=== PATIENT | male | born 1980 | race Caucasian/White ===

== ENCOUNTER 2020-02-22 11:49 | Emergency (ER) | payer SELFPAY ==
[~2020-02-22] VITALS: Ht 188 cm; Wt 84.1 kg
[2020-02-22 14:41] LABS: HEMATOCRIT 35.8 % (39.0-50.0); HEMOGLOBIN 12.1 g/dl (14.0-18.0); MEAN CELL VOLUME 93.5 fL CALC (80.0-100.0); MEAN CORPUSCULAR HGB 31.6 pG CALC (26.0-32.0); MEAN CORPUSCULAR HGB CONC 33.8 g/dL CAL (32.0-36.0); NEUT# 6.25 thou/uL (1.82-7.42); RED BLOOD COUNT 3.83 mill/uL (4.70-6.10)
[2020-02-22 14:48] LABS: ALBUMIN 3.6 g/dL (3.2-5.0); ALKALINE PHOSPHATASE 54 u/l (38-126); ANION GAP 8 (6-22 (CALC)); BILIRUBIN, TOTAL 0.3 mg/dL (0.0-1.4); BUN 24 mg/dL (9-20); BUN/CREATININE RATIO 27 (12-20 (CALC)); CARBON DIOXIDE 28 mmol/l (22-30); CHLORIDE 108 mmol/l (95-108); CREATININE 0.9 mg/dL (0.7-1.3); GFR > 60 ML/MIN (>=60 (CALC)); GFR FOR AFR.AMER. > 60 ML/MIN (>=60 (CALC)); LIPASE 214 u/l (23-300); POTASSIUM 3.3 mmol/l (3.5-5.1); SGOT/AST 30 u/l (17-59); SODIUM 140 mmol/l (137-146); TOTAL PROTEIN 6.1 g/dL (6.3-8.2)
[2020-02-22] MEDS ORDERED: TRINTELLIX10 MG (14:50)
[2020-02-22] MEDS ORDERED: ADDERALL10 MG PO (14:51)
[2020-02-22] MEDS ORDERED: DEPO-TESTOS200 MG/M1 IM (14:52)
[2020-02-22] MEDS ORDERED: STELARA130 MG/26 (14:52)
[2020-02-22] MEDS ORDERED: PREDNISONE20 MG PO (14:53)
[2020-02-22 14:56] LABS: IMMATURE GRANULOCYTES 8.4 % (0.0-5.0)
[2020-02-22 16:21] LABS: URINE BILIRUBIN - DIPSTICK NEGATIVE (NEGATIVE); URINE BLOOD DIPSTICK NEGATIVE (NEGATIVE); URINE COLOR YELLOW; URINE GLUCOSE - DIPSTICK NEGATIVE (NEGATIVE); URINE KETONE NEGATIVE (NEGATIVE); URINE LEUK ESTERASE NEGATIVE (NEGATIVE); URINE NITRITE - DIPSTICK NEGATIVE (Negative); URINE PH 6.5 (4.5-8.0); URINE PROTEIN - DIPSTICK NEGATIVE (NEG-TRACE); URINE UROBILINOGEN - DIPSTICK 0.2 E.U./dL (0.2)
[2020-02-22 16:51] VITALS: BP 128/88
[2020-02-22] MEDS ORDERED: PHENERGAN25 MG/TAB PO (16:51)
[2020-02-22] MEDS ORDERED: PREDNISONE50 MG PO (16:51)
== END 2020-02-22 17:30 | disposition home or self-care (01) | DRG 392 ==
LOC: ED 11:49
PROVIDERS: Family Medicine
DX: R10.84 Generalized abdominal pain (principal); K50.90 Crohn's disease, unspecified, without complications; Z79.899 Other long term (current) drug therapy; F17.210 Nicotine dependence, cigarettes, uncomplicated

== ENCOUNTER 2020-05-12 23:00 | Emergency (ER) | payer SELFPAY ==
[~2020-05-12] VITALS: Ht 188 cm; Wt 90.0 kg
[~2020-05-12 23:00] MED LIST: ADDERALL10 MG PO; DEPO-TESTOS200 MG/M1 IM; PHENERGAN25 MG/TAB PO; PREDNISONE20 MG PO; PREDNISONE50 MG PO; STELARA130 MG/26; TRINTELLIX10 MG
[2020-05-13 00:14] LABS: HEMATOCRIT 36.8 % (39.0-50.0); HEMOGLOBIN 12.5 g/dl (14.0-18.0); IMMATURE GRANULOCYTES 0.8 % (0.0-5.0); MEAN CELL VOLUME 92.7 fL CALC (80.0-100.0); MEAN CORPUSCULAR HGB 31.5 pG CALC (26.0-32.0); NEUT# 6.57 thou/uL (1.82-7.42); RED BLOOD COUNT 3.97 mill/uL (4.70-6.10); RED CELL DISTRI WIDTH 12.5 % (11.5-15.5)
[2020-05-13 00:33] LABS: URINE BILIRUBIN - DIPSTICK NEGATIVE (NEGATIVE); URINE BLOOD DIPSTICK NEGATIVE (NEGATIVE); URINE COLOR YELLOW; URINE GLUCOSE - DIPSTICK 250 mg/dL (NEGATIVE); URINE KETONE 15 mg/dL (NEGATIVE); URINE LEUK ESTERASE NEGATIVE (NEGATIVE); URINE NITRITE - DIPSTICK NEGATIVE (Negative); URINE PROTEIN - DIPSTICK NEGATIVE (NEG-TRACE); URINE SPECIFIC GRAVITY 1.015; URINE UROBILINOGEN - DIPSTICK 0.2 E.U./dL (0.2)
[2020-05-13 00:38] LABS: ALBUMIN 4.4 g/dL (3.2-5.0); ALKALINE PHOSPHATASE 67 u/l (38-126); AMYLASE 66 u/l (30-110); ANION GAP 16 (6-22 (CALC)); BILIRUBIN, TOTAL 0.5 mg/dL (0.0-1.4); BUN 10 mg/dL (9-20); BUN/CREATININE RATIO 11 (12-20 (CALC)); CARBON DIOXIDE 21 mmol/l (22-30); CHLORIDE 105 mmol/l (95-108); CREATININE 0.9 mg/dL (0.7-1.3); GFR > 60 ML/MIN (>=60 (CALC)); GFR FOR AFR.AMER. > 60 ML/MIN (>=60 (CALC)); LIPASE 61 u/l (23-300); SGOT/AST 35 u/l (17-59); SODIUM 138 mmol/l (137-146); TOTAL PROTEIN 7.1 g/dL (6.3-8.2)
[2020-05-13] MEDS ORDERED: HYDROCO/APAP1 TA9 PO (03:24)
[2020-05-13] MEDS ORDERED: PREDNISONE10 MG PO (03:24)
[2020-05-13] MEDS ORDERED: CIPROFLOXACN500 MG PO (03:24)
[2020-05-13] MEDS ORDERED: METRONIDAZOL250 MG PO (03:24)
[2020-05-13 06:50] VITALS: BP 128/60
== END 2020-05-13 06:50 | disposition home or self-care (01) | DRG 392 ==
LOC: ED 23:00
DX: K52.9 Noninfective gastroenteritis and colitis, unspecified (principal); K50.10 Crohn's disease of large intestine without complications